=== PATIENT | female | born 1945 | race Caucasian/White ===

== ENCOUNTER → 2019-08-13 | Day surgery (SDC) | payer OTHER ==
[~2019-08-13] MED LIST: ADDERALL 10 MG10 MG PO; AMBIEN5 MG PO; ASPIR 8181 M1 PO; BUTALBIT-ACETA1 EACH PO; CALCIUM500 MG PO; CARVEDILOL12.5 MG PO; FOSAMAX 70 MG T70 MG PO; NORCO 5-325 TA1 EAC1 PO; NORVASC 2.5 MG2.5 M1 PO; PROAIR HFA8.5 GM INH; VITAMIN B-121000 MC2 PO; VITAMIN D325 MC3 PO; XANAX 0.25 MG0.25 MG PO; [UNRECOGNIZED DRUG - MIXTURE] PO
--- NOTE | ~2019-08-13 | OP ---
[address] [address] OPERATIVE REPORT Name: ELLATIFFANY Moser Room: [facility]#: [id number] Admission: 08/13/19 Attend Phys: Ryan Orellana Discharge: Date of : 47 Report #: [id number] THIS REPORT FOR: //name// cc: Rudolph Shay Mohammad K. DO ~ THIS REPORT FOR: //name// CC: Ryan Shay DATE OF SERVICE: 08/13/2019 PREOPERATIVE DIAGNOSIS: Incarcerated ventral incisional hernia. POSTOPERATIVE DIAGNOSIS: Incarcerated ventral incisional hernia. OPERATION: Laparoscopic repair of incarcerated ventral incisional hernia with mesh. SURGEON: Ryan Orellana MD ANESTHESIA: General. ESTIMATED BLOOD LOSS: Minimal. SPECIMEN: None. DESCRIPTION OF PROCEDURE: After informed consent was obtained, the patient was brought to the operating room and placed supine. SCDs were placed and working, preoperative antibiotics were administered, general anesthesia was induced. The abdomen was prepped and draped in the usual sterile fashion. A 5-mm incision was made in the left upper quadrant. A 5-mm trocar was placed under direct vision. Pneumoperitoneum was established. A left-sided 8-mm trocar and a right-sided 5-mm trocar was placed. She had omentum stuck in a supraumbilical ventral incisional hernia defect. This was fully reduced. Defect measured approximately 1.5 x 1.5 cm. I then inserted a 4 x 6-inch Bard Ventralight ST mesh. It was brought up to the abdominal wall and tacked with approximately 25 absorbable tacks. A transfascial 2-0 Ethibond suture was passed using a suture passer in the superior middle portion of the mesh. The ports were then removed under direct vision. The skin was closed with 4-0 Monocryl. Incisions were sealed with Dermabond. COMPLICATIONS: [place] [address] OPERATIVE REPORT Name: TIFFANY JARAMILLO Room: [facility]#: [id number] Admission: 08/13/19 Attend Phys: Ryan Orellana Discharge: Date of : 47 Report #: [id number] DISPOSITION: The patient was taken to recovery in satisfactory condition. By: [id number] Orellana MD /michaelle
[2019-08-13 09:01] LABS: HEMATOCRIT 41.4 % (37.0-47.0); HEMOGLOBIN 14.4 gm/dL (12.0-15.0); MCH 30.2 pg (26.0-34.0); MCHC 34.7 g/dL (28.0-37.0); MCV 87.2 fL (80.0-100.0); MPV 6.8 fl. (7.2-11.1); RBC 4.75 mil/uL (4.20-5.00); RDW-CV 13.5 % (10.5-14.5); WBC 7.9 thou/uL (4.0-11.0)
[2019-08-13 09:07] LABS: CALCIUM 8.9 mg/dL (8.5-10.1); CREATININE 1.2 mg/dL (0.6-1.3); POTASSIUM 4.4 mmol/L (3.5-5.1)
--- NOTE | 2019-08-13 14:52 | EKG ---
[place] [address] ELECTROCARDIOGRAM REPORT Name: TIFFANY JARAMILLO Room: [facility]#: [id number] Admission: 08/13/19 Attend Phys: Ryan Guerrero Discharge: Date of : 47 Date of Service: 08/13/19 0837 Report #: [id number] THIS REPORT FOR: //name// [facility] [place] Test Date: 2019-08-13 Test Time: 08:37:23 Pat Name: TIFFANY JARAMILLO Department: Room: Gender: [employer] [place] [facility] [place] 1945 Requested By: Ryan Orellana Order Number: [id number] Mary Anne MD: Noam Langford Measurements Intervals [place] Rate: 62 P: 24 MD: 195 QRS: -46 QRSD: 89 T: 7 QT: 409 QTc: 416 Interpretive Statements Sinus rhythm Inferior infarct, 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
== END | disposition home or self-care (01) ==
LOC: M.SUR 06:52
PROVIDERS: Surgery
DX: K43.0 Incisional hernia with obstruction, without gangrene (principal); J43.9 Emphysema, unspecified; F32.9 Major depressive disorder, single episode, unspecified; Z98.890 Other specified postprocedural states; Z79.899 Other long term (current) drug therapy; Z90.710 Acquired absence of both cervix and uterus; Z90.49 Acquired absence of other specified parts of digestive tract; Z88.0 Allergy status to penicillin; Z11.59 Encounter for screening for other viral diseases